=== PATIENT | male | born 1995 | race Caucasian/White ===

== ENCOUNTER 2016-03-27 01:49 | Emergency (ER) | payer OTHER ==
[~2016-03-27] VITALS: Ht 172.7 cm; Wt 78.0 kg
[2016-03-27 02:04] VITALS: TEMP 36.8; Ht 172.7 cm; Wt 78.0 kg
[2016-03-27 03:06] VITALS: BP 146/76; PULSE 86; O2SAT 95
--- NOTE | 2016-03-27 08:15 | DIAGNOSTIC IMAGING REPORT ---
CT OF THE HEAD WITHOUT CONTRAST CLINICAL HISTORY: Fall. Head injury. COMPARISON STUDY: No previous studies for comparison. CT DOSE: 614.27 mGy.cm TECHNIQUE: Helical axial images of the head were obtained without IV contrast. Automated exposure control was utilized for the study. FINDINGS: No acute intracranial hemorrhage, midline shift or mass effect is present. Brain volume is normal. Ventricular system is normal. Basilar cisterns are patent. No extra-axial collection is present. There is no calvarial fracture. There is a small left forehead contusion. IMPRESSION: 1. No acute intracranial findings. 2. Small left forehead contusion. No calvarial fracture. Electronically signed by: Travon Vieyra M.D. 03/27/2016 8:14 AM Dictated Date/Time: 03/27/2016 8:12 AM
--- NOTE | 2016-03-27 23:32 | EMERGENCY ROOM VISIT NOTE ---
ED Visit Note First contact with patient: 02:11 CHIEF COMPLAINT: Head injury HISTORY OF PRESENT ILLNESS: This 20-year-old male patient presented to the emergency department after receiving a head injury about one hour ago. The patient was walking up stairs, when he slipped, and struck the front of his head off the corner of the staircase. There was no brief loss of consciousness. There has been no vomiting. The patient complains of frontal head pain. The patient denies neck pain, lightheadedness, dizziness, or extremity injury. The headache has been dull and 5/10. The patient denies bowel or bladder dysfunction. The patient denies any other injuries. REVIEW OF SYSTEMS: A review of systems was performed with positives and pertinent negatives listed in the history of present illness. All other systems were reviewed and are negative. ALLERGIES: No known allergies MEDICATIONS: No chronic medications PMH: No chronic medical disease SOCIAL HISTORY: Student and lives locally PHYSICAL EXAM: Vital Signs: Reviewed Nurse's notes, vital signs stable. GENERAL : White male, in no acute distress, well-developed, well-nourished. NEURO: The patient is alert, oriented to person place and time, and coherent. Normal mini mental status exam. Negative Romberg and pronator drift. Cerebellar function intact. HEAD: There is horizontal bruising across the front of the forehead measuring approximately 9 cm in length consistent with striking a stair with a fall as in the history. EYES: Pupils are equal round and reactive to light and accommodation. EOMs are full and optic discs and fundi are normal. There is no swelling or discoloration of the tissue surrounding the eyes. EARS: External auditory canals clear without blood. NOSE: Patent without tenderness. No septal hematoma. FACE: No facial bone tenderness. NECK: Supple. There is no cervical spine tenderness. The patient does not have tenderness with movement of the neck. CT OF THE HEAD WITHOUT CONTRAST CLINICAL HISTORY: Fall. Head injury. COMPARISON STUDY: No previous studies for comparison. CT DOSE: 614.27 mGy.cm TECHNIQUE: Helical axial images of the head were obtained without IV contrast. Automated exposure control was utilized for the study. FINDINGS: No acute intracranial hemorrhage, midline shift or mass effect is present. Brain volume is normal. Ventricular system is normal. Basilar cisterns are patent. No extra-axial collection is present. There is no calvarial fracture. There is a small left forehead contusion. IMPRESSION: 1. No acute intracranial findings. 2. Small left forehead contusion. No calvarial fracture. ED COURSE: I examined the patient. He appears to fall and struck in his head. He does have obvious outward signs of injury. Because of this a CT scan was performed, which does not show acute intercranial findings. Overall the patient appears stable for discharge home. He is to follow with [facility] this week for further care and management. He was otherwise invited back to the ER with any new, worsening, or concerning symptoms. Current/Historical Medications No Active Prescriptions or Reported Meds Allergies Coded Allergies: No Known Allergies (Unverified , 03/27/16) Vital Signs Date Time Temp Pulse Resp B/P Pulse Ox O2 Delivery O2 Flow Rate FiO2 03/27/16 03:06 86 18 146/76 95 Room Air 03/27/16 02:35 72 18 148/83 98 Room Air 03/27/16 02:04 18 03/27/16 02:04 36.8 81 18 152/69 96 Room Air Departure Information Impression Primary Impression: Closed head injury Dispostion Home / Self-Care Condition GOOD Prescriptions No Active Prescriptions or Reported Meds Referrals No Doctor, Assigned (PCP) Forms HOME CARE DOCUMENTATION FORM, IMPORTANT VISIT INFORMATION Patient Instructions My [facility] Additional Instructions You were seen and evaluated today on an emergency basis only. This is not a substitute for, or an effort to provide, complete comprehensive medical care. It is not possible to recognize and treat all injuries or illnesses in a single emergency department visit. For this reason it is recommended that you followup with [facility] next week for ongoing care and evaluation. For baseline pain relief you may alternate ibuprofen and acetaminophen every 4 hours for pain control. Take 600 mg ibuprofen (Advil) and then 4 hours later take 1000 mg acetaminophen (Tylenol). Do not take more than 3000 mg acetaminophen in a single day. You are welcome to return to the emergency department anytime with new, worsening, or concerning symptoms.
== END 2016-03-27 03:11 | disposition home or self-care (01) ==
LOC: EDBD 01:52 → C.EDB 01:52 → C.EDA 03:11
DX: S09.90XA Unspecified injury of head, initial encounter (principal); W01.198A Fall on same level from slipping, tripping and stumbling with subsequent striking against other object, initial encounter